=== PATIENT | male | born 2000 | race Caucasian/White ===

== ENCOUNTER 2025-05-12 04:55 | Emergency (ER) | payer SELFPAY ==
[2025-05-12] MEDS ORDERED: ONDANSETRON 4 MG/2 ML VIAL ONE (05:50)
[2025-05-12] MEDS ORDERED: NA CHLORIDE 0.9% 1,000 ML ONE ×2 (05:50→06:44)
[2025-05-12] MEDS ORDERED: KETOROLAC 30 MG/ML INJ ONE ×2 (05:50→06:44)
[2025-05-12 06:08] LABS: Absolute Lymphocytes (CBC) 2.1 K/uL (0.7-4.9); Hematocrit 45.5 % (39.6-49.0); Hemoglobin 15.6 g/dL (13.6-17.9); MCH 28.2 pg (27.0-35.0); MCHC 34.4 g/dL (32.0-36.0); MCV 82.1 fL (80-100); MPV 10.2 fL (7.6-11.3); Nucleated RBC Absolute Count 0.0 (0-0); Nucleated Red Blood Cells % 0.2 % (0-0); RBC Red Blood Cell Count 5.54 M/uL (4.33-5.43); White Blood Count 8.70 thou/uL (4.3-10.9)
[2025-05-12 06:11] LABS: Sqamous Epithelial <5 /HPF (None Seen); Urine Culture Reflex Order NOT NEEDED; Urine Microscopic Reflex YN ORDER UMIC
[2025-05-12 06:25] LABS: ALT/SGPT 45.0 U/L (16-61); AST/SGOT 19.0 U/L (15-37); Albumin 3.9 g/dL (3.4-5.0); Albumin/Globulin Ratio 1.0 (1.1-1.8); Alkaline Phosphatase 105.0 U/L (45-117); Anion Gap 9.7 mEq/L (5.0-15.0); BUN Blood Urea Nitrogen 10.0 mg/dL (7-18); Globulin 3.8 g/dL (2.3-3.5); Glucose Level 98.0 mg/dL (74-106); Lipase 36.0 U/L (13-75); Potassium 3.7 mEq/L (3.5-5.1)
[2025-05-12] MEDS ORDERED: TAMSULOSIN 0.4 MG SR CAP ONE (06:44)
[2025-05-12] MEDS ORDERED: CEFTRIAXONE 1000 MG/VIAL ONE (06:44)
[2025-05-12] MEDS ORDERED: MAGNESIUM SULFATE 1 gm IVPB 1 GM/100 ML BAG IV ONE (06:45)
--- NOTE | 2025-05-12 06:58 | ER ---
Nurse's Notes [facility] Name: Kamari Pinon Age: 24 yrs Sex: Male : 2000 Arrival Date: 05/12/2025 Time: 04:55 Bed 7 Private MD: Diagnosis: Hydronephrosis with renal and ureteral calculous obstruction Presentation: 05/12 05:22 Chief complaint: Patient states: NAUSEA AND VOMITING. RIGHT FLANK PAIN THAT RADIATES TO ha1 THE GROIN AREA. 05:22 Coronavirus screen: Client denies travel out of the [place] in the last 14 days. Ebola ha1 Screen: No symptoms or risks identified at this time. Initial Sepsis Screen: Does the patient meet any 2 criteria? No. Patient's initial sepsis screen is negative. Does the patient have a suspected source of infection? No. Patient's initial sepsis screen is negative. Risk Assessment: Do you want to hurt yourself or someone else? Patient reports no desire to harm self or others. Onset of symptoms was May 12, 2025. 05:22 Method Of Arrival: Ambulatory ha1 05:22 Acuity: ERIKA 3 ha1 Triage Assessment: 05:22 General: Appears comfortable, Behavior is calm, cooperative. Pain: Complains of pain in ha1 back Pain radiates to groin Pain currently is 5 out of 10 on a pain scale. Quality of pain is described as aching. Neuro: Level of Consciousness is awake, alert, obeys commands, Oriented to person, place, time, situation. Cardiovascular: Capillary refill < 3 seconds Patient's skin is warm and dry. Respiratory: Airway is patent Respiratory effort is even, unlabored, Respiratory pattern is regular, symmetrical. GI: Abdomen is round non-distended, Reports nausea, vomiting. Musculoskeletal: Circulation, motion, and sensation intact. Range of motion: intact in all extremities. Historical: - Allergies: 05:43 No Known Allergies; ha1 - PMHx: 05:43 None; ha1 - Immunization history:: Adult Immunizations up to date. - Infectious Disease History:: Denies. - Social history:: Smoking status: Reported history of juuling and/or vaping. Screenin:47 [facility] ED Fall Risk Assessment (Adult) History of falling in the last 3 months, ha1 including since admission No falls in past 3 months (0 pts) Confusion or Disorientation No (0 pts) Intoxicated or Sedated No (0 pts) Impaired Gait No (0 pts) Mobility Assist Device Used No (0 pt) Altered Elimination No (0 pt) Score/Fall Risk Level 0 - 2 = Low Risk Oriented to surroundings, Maintained a safe environment, Educated pt \T\ family on fall prevention, incl call for assistance when getting out of bed, Hourly rounding (assess needs \T\ fall precautionary measures) done. Abuse screen: Denies threats or abuse. Denies injuries from another. Nutritional screening: No deficits noted. Tuberculosis screening: No symptoms or risk factors identified. Assessment: 05:22 Reassessment: SEE TRIAGE ASSESSMENT. ha1 06:57 Reassessment: Patient and/or family updated on plan of care and expected duration. Pain ha1 level reassessed. Patient is alert, oriented x 3, equal unlabored respirations, skin warm/dry/pink. PAIN 2/10 Patient states feeling better. Patient states symptoms have improved. 07:25 General: Appears in no apparent distress. comfortable, Behavior is calm, cooperative. zm Pain: Complains of pain in back Pain currently is 2 out of 10 on a pain scale. Neuro: Level of Consciousness is awake, alert, obeys commands, Oriented to person, place, time, situation. Cardiovascular: Heart tones S1 S2 present Capillary refill < 3 seconds in bilateral fingers Patient's skin is warm and dry. Respiratory: Airway is patent Respiratory effort is even, unlabored, Respiratory pattern is regular, symmetrical, Breath sounds are clear bilaterally. GI: Abdomen is round non-distended, Bowel sounds present X 4 quads. Abd is soft and non tender X 4 quads. : Denies burning with urination, inability to void. EENT: No signs and/or symptoms were reported regarding the EENT system. Derm: No signs and/or symptoms reported regarding the dermatologic system. Skin is intact, is healthy with good turgor, Skin is pink, warm \T\ dry. Musculoskeletal: No signs and/or symptoms reported regarding the musculoskeletal system. Circulation, motion, and sensation intact. Range of motion: intact in all extremities. Vital Signs: 05:22 BP 130 / 93; Pulse 99; Resp 20 S; Temp 97.8(O); Pulse Ox 100% on R/A; Weight 120.2 kg; ha1 Height 5 ft. 7 in. ; Pain 5/10; 06:55 BP 141 / 92; Pulse 85; Resp 18 S; Pulse Ox 98% on R/A; ha1 07:48 BP 129 / 88; Pulse 69; Resp 17; Temp 98.3; Pulse Ox 99% on R/A; Pain 2/10; zm 08:27 BP 137 / 62; Pulse 65; Resp 15; Pulse Ox 100% ; bp 05:22 Body Mass Index 41.50 (120.20 kg, 170.18 cm) ha1 05:22 Pain Scale: Adult ha1 07:48 Pain Scale: Adult zm [place] Coma Score: 07:48 Eye Response: spontaneous(4). Motor Response: obeys commands(6). Verbal Response: zm oriented(5). Total: 15. ED Course: 04:59 Patient arrived in ED. gm2 05:00 Mdahu Tillman PA-C is PHCP. cp 05:00 Madhu Thomas MD is Attending Physician. cp 05:22 Patient has correct armband on for positive identification. Bed in low position. Call ha1 light in reach. Side rails up X 1. Adult w/ patient. 05:22 Client placed on continuous cardiac and pulse oximetry monitoring. NIBP monitoring ha1 applied. Door closed. Noise minimized. Pillow given. 05:43 Triage completed. ha1 05:47 Inserted saline lock: 20 gauge in left antecubital area, using aseptic technique. Blood ha1 collected. Flushed with 10 mL NS. 05:55 IV discontinued, intact, bleeding controlled, No redness/swelling at site. Pressure ha1 dressing applied. 05:55 Inserted saline lock: 22 gauge in right upper arm, using aseptic technique. Flushed ha1 with 10 mL NS. 06:10 CT Stone Protocol In Process Unspecified. EDMS 06:38 Amy Romo, MARIEL is Primary Nurse. ha1 06:58 Milton Harris MD is Referral Physician. otf 07:20 US Scrotum Testicles In Process Unspecified. EDMS 07:20 Abdomen Pelvis Scan\E\US In Process Unspecified. EDMS 08:27 No provider procedures requiring assistance completed. IV discontinued, intact, bp bleeding controlled, No redness/swelling at site. Pressure dressing applied. Administered Medications: 06:00 Drug: Ondansetron IVP 4 mg IVP once; over 2 minutes Route: IVP; Site: right upper arm; ha1 07:36 Follow up: Response: No adverse reaction zm 06:02 Drug: Ketorolac IVP 15 mg IVP once Route: IVP; Site: right upper arm; ha1 07:36 Follow up: Response: No adverse reaction zm 06:06 Drug: NS 0.9% IV 1000 ml IV at 1000 ml once; to be given as a bolus over 60 minutes ha1 Route: IV; Rate: 1000 ml; Site: right upper arm; 07:36 Follow up: Response: No adverse reaction; IV Status: Completed infusion; IV Intake: zm 1000ml 06:55 Drug: Ketorolac IVP 15 mg IVP once Route: IVP; Site: right upper arm; ha1 07:38 Follow up: Response: No adverse reaction zm 06:57 Drug: Rocephin IV 1 grams IV at per protocol once; Given slow IV push per pharmacy ha1 instructions Route: IV; Rate: per protocol; Site: right upper arm; 07:39 Follow up: Response: No adverse reaction; IV Status: Completed infusion zm 06:59 Drug: Magnesium Sulfate IVPB 1 grams IVPB once over 1 hrs Route: IVPB; Infused Over: 1 ha1 hrs; Site: right upper arm; 07:37 Follow up: Response: No adverse reaction; IV Status: Completed infusion; IV Intake: 50mlzm 06:59 Drug: NS 0.9% IV 1000 ml IV at 1000 ml once; to be given as a bolus over 60 minutes ha1 Route: IV; Rate: 1000 ml; Site: right upper arm; 08:27 Follow up: IV Status: Completed infusion bp 07:00 Drug: Flomax PO 0.4 mg PO once Route: PO; ha1 07:37 Follow up: Response: No adverse reaction zm 08:26 Not Given (Other Intervention Used): hydromorphone1 mg IVP once bp Medication: 05:47 VIS not applicable for this client. ha1 Intake: 07:36 IV: 1000ml; Total: 1000ml. zm 07:37 IV: 50ml; Total: 1050ml. zm Outcome: 06:58 Discharge ordered by . otf 08:27 Discharged to home ambulatory, with family, bp 08:27 Condition: stable 08:27 Discharge instructions given to patient, Instructed on discharge instructions, follow up and referral plans. medication usage, Demonstrated understanding of instructions, follow-up care, medications, Prescriptions given X 5 08:28 Patient left the ED. bp Signatures: Dispatcher [employer] EDMadhu Baez MD MD cha Page, Corey, PA-C PA-Ganesh Douglas cp, RN RN Eunice Callejas RN RN zm Ayala, Heidy, RN RN Amaya Palma 2 Corrections: (The following items were deleted from the chart) 07:48 07:42 General: Appears in no apparent distress. comfortable, zm zm
--- NOTE | 2025-05-12 06:59 | EDPHYS ---
Physician Documentation [facility] Name: Kamari Pinon Age: 24 yrs Sex: Male : 2000 Arrival Date: 05/12/2025 Time: 04:55 Bed 7 Private MD: ED Physician Madhu Thomas HPI: 05/12 05:15 This 24 yrs old Male presents to ER via Ambulatory with complaints of Possible Kidney cp Stone, Low Back Pain, Nausea/Vomiting, Abdominal Pain. 05:15 The patient presents with flank pain, of the right flank, scrotal pain, of the right cp side. Onset: The symptoms/episode began/occurred this morning. Associated signs and symptoms: Pertinent positives: abdominal pain, nausea, Pertinent negatives: chest pain, constipation, fever, incontinence, numbness, active vomiting. Severity of symptoms: in the emergency department the symptoms are unchanged, despite home interventions, pain described as achy. Historical: - Allergies: 05:43 No Known Allergies; ha1 - PMHx: 05:43 None; ha1 - Immunization history:: Adult Immunizations up to date. - Infectious Disease History:: Denies. - Social history:: Smoking status: Reported history of juuling and/or vaping. ROS: 05:20 Constitutional: Negative for body aches, chills, fever, poor PO intake, cp 05:20 Eyes: Negative for injury, pain, redness, and discharge, cp 05:20 ENT: Negative for drainage from ear(s), ear pain, sore throat, difficulty swallowing, difficulty handling secretions, 05:20 Cardiovascular: Negative for chest pain, edema, palpitations, 05:20 Respiratory: Negative for cough, shortness of breath, wheezing, 05:20 Abdomen/GI: Positive for abdominal pain, nausea, of the anterior aspect of right lateral abdomen and posterior aspect of right lateral abdomen, Negative for diarrhea, constipation, 05:20 : Positive for testicular pain 05:20 Neuro: Negative for altered mental status, dizziness, headache, numbness, 05:20 All other systems are negative, Exam: 05:25 Constitutional: The patient appears in no acute distress, alert, awake, non-toxic, well cp developed, well nourished, overweight 05:25 Head/Face: Normocephalic, atraumatic. cp 05:25 Eyes: Periorbital structures: appear normal, Conjunctiva: normal, Sclera: no appreciated abnormality, Lids and lashes: appear normal, bilaterally, 05:25 ENT: External ear(s): are unremarkable, Nose: is normal, Mouth: Lips: moist, Oral mucosa: moist, Posterior pharynx: Airway: no evidence of obstruction, patent, 05:25 Neck: ROM/movement: is normal, is supple, without pain, no range of motions limitations, 05:25 Chest/axilla: Inspection: normal, 05:25 Cardiovascular: Rate: normal, Rhythm: regular, Edema: is not appreciated, JVD: is not appreciated, 05:25 Respiratory: the patient does not display signs of respiratory distress, Respirations: normal, no use of accessory muscles, no retractions, labored breathing, is not present, Breath sounds: are clear throughout, no decreased breath sounds, no stridor, no wheezing, 05:25 Abdomen/GI: Inspection: obese Bowel sounds: active, all quadrants, Palpation: soft, in all quadrants, moderate abdominal tenderness, in the anterior aspect of right lateral abdomen and posterior aspect of right lateral abdomen, rebound tenderness, is not appreciated, 05:25 Back: pain, that is moderate, of the right mid back, 05:25 Neuro: Orientation: to person, place \T\ time. Mentation: is normal, Motor: moves all fours, strength is normal, Sensation: is normal, Vital Signs: 05:22 BP 130 / 93; Pulse 99; Resp 20 S; Temp 97.8(O); Pulse Ox 100% on R/A; Weight 120.2 kg; ha1 Height 5 ft. 7 in. ; Pain 5/10; 06:55 BP 141 / 92; Pulse 85; Resp 18 S; Pulse Ox 98% on R/A; ha1 07:48 BP 129 / 88; Pulse 69; Resp 17; Temp 98.3; Pulse Ox 99% on R/A; Pain 2/10; zm 08:27 BP 137 / 62; Pulse 65; Resp 15; Pulse Ox 100% ; bp 05:22 Body Mass Index 41.50 (120.20 kg, 170.18 cm) ha 05:22 Pain Scale: Adult ha1 07:48 Pain Scale: Adult zm [place] Coma Score: 07:48 Eye Response: spontaneous(4). Motor Response: obeys commands(6). Verbal Response: zm oriented(5). Total: 15. MDM: 05:33 Medical Screening Exam initiated cp 06:10 Differential diagnosis: appendicitis, UTI, Pyelonephritis Ureterolithiasis. cp 06:29 Differential diagnosis: sciatica, UTI. Data reviewed: vital signs, nurses notes, lab otf test result(s), radiologic studies, CT scan. Consideration of Admission/Observation Escalation of care including admission/observation considered. I considered the following discharge prescriptions or medication management in the emergency department Medications were administered in the Emergency Department. See MAR. Independent interpretation of the following test(s) in the Emergency Department CT Scan: My interpretation is ct stone. Test considered but Not performed: Ultrasound no renal usg. Historians other than the Patient: Spouse/Significant Other: spouse well informed. Care significantly affected by the following chronic conditions: Obesity. 05/12 05:09 Order name: CBC with Diff; Complete Time: 06:17 cp 05/12 05:09 Order name: CMP; Complete Time: 06:25 cp 05/12 05:09 Order name: Lipase; Complete Time: 06:25 cp 05/12 05:09 Order name: UA Rfx Kirill Cult if indicated; Complete Time: 06:17 cp 05/12 05:40 Order name: US Scrotum Testicles cp 05/12 05:51 Order name: CT Stone Protocol 05/12 07:20 Order name: Abdomen Pelvis Scan\E\US EDMS 05/12 05:09 Order name: IV Saline Lock; Complete Time: 05:55 cp 05/12 05:09 Order name: Labs collected and sent; Complete Time: 06:06 cp Administered Medications: 06:00 Drug: Ondansetron IVP 4 mg IVP once; over 2 minutes Route: IVP; Site: right upper arm; ha1 07:36 Follow up: Response: No adverse reaction zm 06:02 Drug: Ketorolac IVP 15 mg IVP once Route: IVP; Site: right upper arm; ha1 07:36 Follow up: Response: No adverse reaction zm 06:06 Drug: NS 0.9% IV 1000 ml IV at 1000 ml once; to be given as a bolus over 60 minutes ha1 Route: IV; Rate: 1000 ml; Site: right upper arm; 07:36 Follow up: Response: No adverse reaction; IV Status: Completed infusion; IV Intake: zm 1000ml 06:55 Drug: Ketorolac IVP 15 mg IVP once Route: IVP; Site: right upper arm; ha1 07:38 Follow up: Response: No adverse reaction zm 06:57 Drug: Rocephin IV 1 grams IV at per protocol once; Given slow IV push per pharmacy ha1 instructions Route: IV; Rate: per protocol; Site: right upper arm; 07:39 Follow up: Response: No adverse reaction; IV Status: Completed infusion zm 06:59 Drug: Magnesium Sulfate IVPB 1 grams IVPB once over 1 hrs Route: IVPB; Infused Over: 1 ha1 hrs; Site: right upper arm; 07:37 Follow up: Response: No adverse reaction; IV Status: Completed infusion; IV Intake: 50mlzm 06:59 Drug: NS 0.9% IV 1000 ml IV at 1000 ml once; to be given as a bolus over 60 minutes ha1 Route: IV; Rate: 1000 ml; Site: right upper arm; 08:27 Follow up: IV Status: Completed infusion bp 07:00 Drug: Flomax PO 0.4 mg PO once Route: PO; ha1 07:37 Follow up: Response: No adverse reaction zm 08:26 Not Given (Other Intervention Used): hydromorphone1 mg IVP once bp Disposition: 06:29 Co-signature as Attending Physician, Madhu Thomas MD I agree with the assessment and otf plan of care. Disposition Summary: 05/12/25 06:58 Discharge Ordered Notes: Location: Home otf Problem: new otf Symptoms: have improved otf Condition: Stable otf Diagnosis - Hydronephrosis with renal and ureteral calculous obstruction otf Followup: otf - With: Private Physician - When: 2 - 3 days - Reason: Recheck today's complaints, Continuance of care, Re-evaluation by your physician Followup: otf - With: Milton Harris MD - When: 2 - 3 days - Reason: Recheck today's complaints, Continuance of care, Re-evaluation by your physician Discharge Instructions: - Discharge Summary Sheet otf - Kidney Stones otf - Kidney Stones, [id number] otf - Hydronephrosis otf - Dietary Guidelines to Help Prevent Kidney Stones otf Forms: - Medication Reconciliation Form otf - Antibiotic Education otf - Prescription Opioid Use otf - Patient Portal Instructions otf - Leadership Thank You Letter otf Prescriptions: - Flomax 0.4 mg Oral capsule - take 1 capsule ORAL route daily; 30 capsule; Refills: 0, Product Selection [facility] Permitted - ketorolac 10 mg Oral tablet - take 1 tablet ORAL route every 6 hours; 16 tablet; Refills: 0, Product otf Selection Permitted - ondansetron HCl 4 mg Oral tablet - take 1 tablet ORAL route every 6 to 8 hours as needed for nausea and vomiting; otf 20 tablet; Refills: 0, Product Selection Permitted - Cipro 500 mg Oral Tablet - take 1 tablet ORAL route every 12 hours for 7 days; 14 tablet; Refills: 0, [facility] Product Selection Permitted - Tylenol-Codeine #3 300mg-30mg Oral tablet - take 2 tablets ORAL route every 6 hours As needed; 20 tablet; Refills: 0, [facility] Product Selection Permitted Signatures: Dispatcher [employer] EDMS Madhu Thomas MD MD cha Page, Corey, PA-C PA-C Eunice Knight RN MARIEL Amy Romo RN RN ha Ganesh Crockett RN bp Corrections: (The following items were deleted from the chart) 05:10 05:10 CBC+H.LAB.BRZ ordered. EDMS EDMS 05:10 05:10 COMPREHENSIVE METABOLIC PANEL+C.LAB.BRZ ordered. EDMS EDMS 05:10 05:10 LIPASE+C.LAB.BRZ ordered. EDMS EDMS 05:10 05:10 UA Rfx Kirill Cult if indicated+U.LAB.BRZ ordered. EDMS EDMS 05:40 05:40 Scrotum Testicles+US.RAD.BRZ ordered. EDMS EDMS 18:46 05:15 Severity of symptoms: in the emergency department the symptoms are unchanged, cp despite home interventions, cp
--- NOTE | 2025-05-12 07:42 | RAD REPORT ---
EXAMINATION: CT ABDOMEN AND PELVIS WITHOUT CONTRAST CLINICAL INDICATION: FLANK PAIN TECHNIQUE: CT abdomen and pelvis was performed, without IV contrast, as per department protocol. Axia l, sagittal and coronal reconstructions were obtained. One or more of the following dose reduction techniques were used: Automated exposure control, adjustment of the mA and kV according to the patien t size, and iterative reconstruction. Unless otherwise specified, incidental findings do not require dedicated imaging follow-up. COMPARISON: No prior exam. FINDINGS: The lack of intravenous contrast limits the sensitivity of this exam for evaluation of solid visceral organs, vascular structures, and retroperitoneum. LOWER CHEST: The visualized lung bases are clear. LIVER:Normal in size and contour. No focal lesion. Grossly unremarkable gallbladder. SPLEEN: Normal size. No focal lesion. PANCREAS: No mass, ductal dilation, or spencer-pancreatic fluid. ADRENALS: Normal; no mass. KIDNEYS AND URETERS: There is a 5-6 mm stone proximal right ureter at the right UPJ. Mild right hydro nephrosis. No left-sided stone or hydronephrosis seen. URINARY BLADDER: Normal contour. GASTROINTESTINAL TRACT: No evidence of bowel obstruction, significant free fluid, free air or abscess . There is mild diverticulosis coli of the sigmoid colon without diverticulitis. APPENDIX: Normal appendix. LYMPH NODES: No lymphadenopathy. 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 IMPRESSION: 5-6 mm calculus proximal right ureter at the level of the right UPJ resulting in mild right hydroneph rosis.
--- NOTE | 2025-05-12 08:08 | RAD REPORT ---
EXAMINATION: ULTRASOUND DUPLEX OF SCROTUM AND TESTICLES CLINICAL INDICATION: Male, 24 years, testicular pain TECHNIQUE: Duplex scan of the scrotal contents was performed including real-time color and spectral D oppler ultrasonography with arterial inflow and venous outflow. COMPARISON: No prior exam. FINDINGS: RIGHT TESTICLE AND EPIDIDYMIS: The right testicle is normal in size, measuring 4.5 x 3.4 x 2.3 cm. Normal, homogeneous echotexture with no focal lesion seen. The right epididymis is normal. Color Doppler flow in the right testicle is normal. LEFT TESTICLE AND EPIDIDYMIS: The left testicle is normal in size, measuring 4.4 x 3.2 x 2.3 cm. Normal, homogeneous echotexture with no focal lesion seen. The left epididymis is normal. Color Doppler flow in the left testicle is normal. ADDITIONAL FINDINGS: None. IMPRESSION: No acute or significant abnormalities.
[2025-05-12 16:04] VITALS: TEMP 98.3
[2025-05-13] MEDS ORDERED: ONDANSETRON 4 MG/2 ML VIAL IV PRN (02:55)
--- NOTE | 2025-05-13 03:16 | P.HP ---
Certification for Inpatient Patient admitted to: Observation With expected LOS: <2 Midnights Patient will require the following post-hospital care: None Practitioner: I am a practitioner with admitting privileges, knowledge of patient current condition, hospital course, and medical plan of care. Services: Services provided to patient in accordance with Admission requirements found in Title 42 Section 412.3 of the Code of Federal Regulations Patient History Date of Service: 05/13/25 Reason for admission: Renal Calculus History of Present Illness: Patient is a pleasant 24-year-old male with no past medical history, who presents to ER complaining of severe and worsening pain right flank area, and radiates to his scrotum occasionally. Patient states on Sunday of last week, initially he started having scrotum pain, and states on Sunday of this week, started having right flank pain. Patient states his right flank pain progressively worsened today, states the pain was unbearable, and consisted, describes the pain as sharp, aching and constant, with no associated chest pain or shortness of breath. States intermittently, the pain also radiates to scrotum, states not intense like the right flank pain. States he decided to report to the ER tonight due to the severity of his right flank pain. Denies of any fever or chills. Patient has extensive family history of kidney stones, both parents have history, and the sister as well. Course in ER (1)Ultrasound scrotum. Impression: No acute or significant abnormalities. (2)Ultrasound abdomen. Impression no acute or significant abnormalities. (3) CT abdomen. Impression: 5-6 mm calculus proximal right ureter at the level of the right UPJ resulting in mild right hydronephrosis. - Past Medical/Surgical History -: Patient states he does not have any past medical history. -: States no past surgical history. - Family History Father -: Other (see notes) (Kidney stones) Mother -: Other (see notes) (Kidney stones.) Sister -: Other (see notes) (Kidney stones.) - Social History Smoking Status: Never smoker Alcohol use: No CD- Drugs: No Caffeine use: No Place of Residence: Home Review of Systems 10-point ROS is otherwise unremarkable General: Other (Scrotum, right flank pain) Genitourinary: Other (Right flank pain secondary to kidney stone.) Physical Examination - Vital Signs Temperature: 98.3 F Blood Pressure: 137/62 Pulse: 65 Respirations: 15 - Physical Exam General: Alert, In no apparent distress, Oriented x3, Cooperative HEENT: Atraumatic, Normocephalic, PERRLA, Mucous membr. moist/pink Neck: Supple, 2+ carotid pulse no bruit, JVD not distended, No Thyromegaly, No LAD, Without JVD or thyroid abnormality Respiratory: Clear to auscultation bilaterally, Normal air movement Cardiovascular: No edema, Normal pulses, Regular rate/rhythm, Normal S1 S2, No gallops, No rubs, No murmurs Capillary refill: <2 Seconds Gastrointestinal: Normal bowel sounds, Soft and benign, Non-distended, W/out hepatomegaly, No ascites, No masses, No rebound, No guarding, Tenderness (Tenderness right flank pain secondary to kidney stone.) Musculoskeletal: No clubbing, No swelling, No contractures, No erythema, No tenderness, No warmth Integumentary: No rashes, No breakdown, No significant lesion, No tenderness/swelling, No erythema, No warmth, No cyanosis Neurological: Normal gait, Normal speech, Normal strength at 5/5 x4 extr, Normal tone, Sensation intact, Cranial nerves 3-12 intact, Normal reflexes 2+, Normal affect Lymphatics: No axilla or inguinal lymphadenopathy - Studies Laboratory Data (last 24 hrs) 05/12/25 05/12/25 06:00 06:00 WBC 8.70 Hgb 15.6 Hct 45.5 Plt Count 225 Sodium 138 Potassium 3.7 BUN 10 Creatinine 1.12 Glucose 98 Total Bilirubin 0.7 AST 19 ALT 45 Alkaline Phosphatase 105 Lipase 36 Male Exam - Male Exam Inguinal exam: No hernias Assessment and Plan - Plan Patient is a pleasant 24-year-old male who reports to ER complaining of severe right flank pain, radiating intermittently to his scrotum. Patient admitted to observation with diagnosis of renal calculus. (1)Renal calculus. -Consult Dr. Norman Rose urology. -IV NS at 125 mL/ hr. -Toradol 30 mg IV as needed every 6 hours. Patient received Toradol in ER, states it works better with his pain. -Zofran 4 mg IV as needed every 6 hours. (2)Explained entire treatment plan to the patient, solicited questions answered and voiced understanding. Discharge Plan: Home Plan to discharge in: 72 Hours - Advance Directives Does patient have a Living Will: No Does patient have a Durable POA for Healthcare: No - Code Status/Comfort Care Code Status Assessed: Yes Code Status: Full Code Critical Care: No Time Spent Managing Pts Care (In Minutes): 55
[2025-05-13 04:17] VITALS: BMI 41.5
[2025-05-13 04:23] VITALS: O2SAT 97
[2025-05-13] MEDS: KETOROLAC 30 MG/ML INJ IV PRN (04:24)
[2025-05-13] MEDS: NA CHLORIDE 0.9% 1,000 ML IV SCH (06:55)
[2025-05-13 14:27] VITALS: BP 143/99
== END 2025-05-12 08:28 | disposition home or self-care (01) ==
LOC: ER 04:55 → UNDOADMOB 05-13 02:51 → ERHOLD 05-13 02:51
DX: N13.2 Hydronephrosis with renal and ureteral calculous obstruction (principal)
CPT/HCPCS: 36415; 74176; 76377; 76870; 80053; 81001; 83690; 85025; 93975; 96361; 96365; 96375; 99284; J0696; J1885; J2405; J3475; J7030

== ENCOUNTER 2025-05-13 00:01 | Inpatient (IN) | payer SELFPAY ==
[2025-05-13] MEDS ORDERED: ONDANSETRON 4 MG/2 ML VIAL ONE (00:23)
[2025-05-13] MEDS ORDERED: HYDROMORPHONE HCL 0.5 MG/0.5 ML INJ ONE ×2 (00:23→00:52)
[2025-05-13] MEDS ORDERED: KETOROLAC 30 MG/ML INJ ONE ×4 (00:23→11:12)
[2025-05-13] MEDS ORDERED: NA CHLORIDE 0.9% 1,000 ML ONE ×3 (00:24→06:55)
[2025-05-13] MEDS ORDERED: Magnesium Sulfate 2gm IVPB 2 G/50 ML BAG IV ONE (00:24)
[2025-05-13] MEDS ORDERED: TAMSULOSIN 0.4 MG SR CAP ONE (00:24)
[2025-05-13 00:31] LABS: Absolute Lymphocytes (CBC) 3.2 K/uL (0.7-4.9); Hematocrit 45.1 % (39.6-49.0); Hemoglobin 15.1 g/dL (13.6-17.9); MCH 27.8 pg (27.0-35.0); MCHC 33.6 g/dL (32.0-36.0); MCV 82.8 fL (80-100); MPV 9.8 fL (7.6-11.3); Nucleated RBC Absolute Count 0.0 (0-0); Nucleated Red Blood Cells % 0.1 % (0-0); RBC Red Blood Cell Count 5.44 M/uL (4.33-5.43); White Blood Count 9.60 thou/uL (4.3-10.9)
[2025-05-13 00:33] LABS: Sqamous Epithelial None Seen /HPF (None Seen); Urine Culture Reflex Order NOT NEEDED; Urine Microscopic Reflex YN ORDER UMIC
[2025-05-13 00:41] LABS: Anion Gap 7.0 mEq/L (5.0-15.0); BUN Blood Urea Nitrogen 14.0 mg/dL (7-18); Glucose Level 103.0 mg/dL (74-106); Potassium 4.0 mEq/L (3.5-5.1)
--- NOTE | 2025-05-13 02:08 | ER ---
Nurse's Notes [facility] Name: Kamari Pinon Age: 24 yrs Sex: Male : 2000 Arrival Date: 05/13/2025 Time: 00:01 Bed 18 Private MD: Diagnosis: Calculus of kidney with calculus of ureter-5.5 mm right UPJ with hydronephrosis, intractable pain Presentation: 05/13 00:13 Chief complaint: Patient states: c/o R side flank pain, more radiating down toward R al5 side groin. pain started this weekend. acute pain started at 2300 this evening. Coronavirus screen: At this time, the client does not indicate any symptoms associated with coronavirus-19. Ebola Screen: No symptoms or risks identified at this time. Initial Sepsis Screen: Does the patient meet any 2 criteria? No. Patient's initial sepsis screen is negative. Does the patient have a suspected source of infection? No. Patient's initial sepsis screen is negative. Risk Assessment: Do you want to hurt yourself or someone else? Patient reports no desire to harm self or others. Onset of symptoms was May 08, 2025. 00:13 Method Of Arrival: Ambulatory al5 00:13 Acuity: ERIKA 3 al5 00:13 Note attempted to take his prescribed medications for the kidney stones/pain, but al5 vomited pills 15 minutes later. Triage Assessment: 00:13 General: Appears in no apparent distress. uncomfortable, Behavior is calm, cooperative. al5 Pain: Complains of pain in right mid back and right low back Pain radiates to right femoral area Pain currently is 9 out of 10 on a pain scale. EENT: No signs and/or symptoms were reported regarding the EENT system. Neuro: Level of Consciousness is awake, alert, obeys commands, Oriented to person, place, time, situation. Cardiovascular: Patient's skin is warm and dry. Respiratory: Airway is patent Respiratory effort is even, unlabored, Respiratory pattern is regular, symmetrical. GI: Abdomen is non-distended. : Urine is cloudy, dark stanley color Reports pain in right flank(s), in lower back Pain is 9 out of 10 on a pain scale. R side groin. Derm: Skin is intact, is healthy with good turgor, Skin is pink, warm \T\ dry. normal. Musculoskeletal: Circulation, motion, and sensation intact. Range of motion: intact in all extremities. Historical: - Allergies: 00:15 No Known Allergies; al5 - PMHx: 00:15 None; al5 - PSHx: 00:15 None; al5 - Immunization history:: Adult Immunizations up to date. - Infectious Disease History:: Denies. - Social history:: Smoking status: Patient/guardian denies using tobacco, Stopped _ months ago 0.5. Screenin:00 [facility] ED Fall Risk Assessment (Adult) History of falling in the last 3 months, bp including since admission No falls in past 3 months (0 pts) Confusion or Disorientation No (0 pts) Intoxicated or Sedated No (0 pts) Impaired Gait No (0 pts) Mobility Assist Device Used No (0 pt) Altered Elimination No (0 pt) Score/Fall Risk Level 0 - 2 = Low Risk Oriented to surroundings. Abuse screen: Denies threats or abuse. Denies injuries from another. Nutritional screening: No deficits noted. Tuberculosis screening: No symptoms or risk factors identified. Assessment: 00:17 Reassessment: see triage assessment. al5 07:00 GI: Bowel sounds present X 4 quads. Abd is soft X 4 quads. bp Vital Signs: 00:13 BP 155 / 97; Pulse 74; Resp 18; Temp 98.4(O); Pulse Ox 99% on R/A; Weight 120.2 kg; al5 Height 5 ft. 7 in. ; Pain 9/10; 00:13 Body Mass Index 41.50 (120.20 kg, 170.18 cm) al5 00:13 Pain Scale: Adult al5 ED Course: 00:03 Patient arrived in ED. mr 00:04 Nilda Alvarenga PA-C is PHCP. sb4 00:04 Pro Doyle DO is Attending Physician. sb4 00:13 Arm band placed on right wrist. Patient placed in the treatment room, in view of staff al5 members, on pulse oximetry. 00:14 Triage completed. al5 00:26 Inserted saline lock: 22 gauge in left antecubital area, using aseptic technique. Blood jb4 collected. started by MARIEL Cornejo. 00:33 Chantal Doyle RN is Primary Nurse. at6 01:13 CT Stone Protocol In Process Unspecified. EDMS 02:07 Quincy Russell, RN is Hospitalizing Provider. sb4 07:00 Patient has correct armband on for positive identification. bp 07:00 No provider procedures requiring assistance completed. Patient admitted, IV remains in bp place. 07:04 Primary Nurse role handed off by Chantal Doyle, MARIEL bp 07:04 Ganesh Crockett, RN is Primary Nurse. bp Administered Medications: 00:33 Drug: HYDROmorphone IVP 0.5 mg IVP once Route: IVP; Site: left antecubital; at6 02:58 Follow up: Response: Pain is decreased at6 00:33 Drug: NS 0.9% IV 1000 ml IV at 1 bolus Per protocol; to be given as a bolus over 60 at6 minutes Route: IV; Rate: 1 bolus; Site: left antecubital; 02:58 Follow up: Response: No adverse reaction; IV Status: Completed infusion at6 00:33 Drug: Magnesium Sulfate IVPB 2 grams IVPB once over 30 mins Route: IVPB; Infused Over: at6 30 mins; Site: left antecubital; 14:48 Follow up: IV Status: Completed infusion bp 00:33 Drug: Ondansetron IVP 4 mg IVP once; over 2 minutes Route: IVP; Site: left antecubital; at6 02:57 Follow up: Response: Nausea is decreased at6 00:33 Drug: Flomax PO 0.4 mg PO once Route: PO; at6 14:48 Follow up: Response: No adverse reaction bp 00:34 Drug: Ketorolac IVP 15 mg IVP once Route: IVP; Site: left antecubital; at6 02:58 Follow up: Response: No adverse reaction at6 00:56 Drug: HYDROmorphone IVP 0.5 mg IVP once Route: IVP; Site: left antecubital; jb4 02:56 Follow up: Response: Pain is decreased at6 02:03 Drug: Ketorolac IVP 15 mg IVP once Route: IVP; Site: left antecubital; at6 02:56 Follow up: Response: Pain is unchanged, physician notified at6 02:15 Drug: HYDROmorphone IVP 1 mg IVP once Route: IVP; Site: left antecubital; at6 02:56 Follow up: Response: Pain is decreased at6 02:15 Drug: NS 0.9% IV 1000 ml IV at 1 bolus Per protocol; to be given as a bolus over 60 at6 minutes Route: IV; Rate: 1 bolus; Site: left antecubital; 02:56 Follow up: Response: No adverse reaction; IV Status: Completed infusion at6 Medication: 14:49 VIS not applicable for this client. bp Outcome: 02:08 Decision to Hospitalize by Provider. sb4 14:47 Admitted to ER Hold. Please see [facility] for further documentation. bp 14:47 Condition: stable 14:47 Instructed on the need for admit, 15:28 Patient left the ED. ll1 Signatures: Dispatcher [employer] EDMS Elizabet uGpta, Ben Contreras mr Marshal Maxwell, RN RN jb4 Ganesh Crockett, RN RN Ronni Varela RN RN ll1 Nilda Alvarenga, PA-Sandra PAClaudia sb4 Laura Rose RN RN al5 Chantal Doyle RN RN at6
--- NOTE | 2025-05-13 02:08 | EDPHYS ---
Physician Documentation [facility] Name: Kamari Pinon Age: 24 yrs Sex: Male : 2000 Arrival Date: 05/13/2025 Time: 00:01 Bed 18 Private MD: ED Physician Pro Doyle HPI: 05/13 00:15 This 24 yrs old Male presents to ER via Ambulatory with complaints of Possible Kidney sb4 Stone. 00:15 Patient states that he was seen here last night and diagnosed with a 5 to 6 cm kidney sb4 stone on the right side, pain improved after medications and was discharged with antibiotics, pain medicines, antibiotics, Flomax. He states that his pain returned this evening and he attempted to take the medications but he threw them all up and the pain has been unbearable so he came back. States he is urinating, but feels like it is small amounts and he has more to void. Denies any history of kidney stones prior to this. Historical: - Allergies: 00:15 No Known Allergies; al5 - PMHx: 00:15 None; al5 - PSHx: 00:15 None; al5 - Immunization history:: Adult Immunizations up to date. - Infectious Disease History:: Denies. - Social history:: Smoking status: Patient/guardian denies using tobacco, Stopped _ months ago 0.5. ROS: 00:15 Constitutional: Negative for fever, chills, and weight loss, sb4 00:15 : Positive for flank pain, 00:15 All other systems are negative, 01:37 Abdomen/GI: Positive for nausea and vomiting, sb4 Exam: 00:15 Head/Face: Normocephalic, atraumatic. Eyes: Extra-ocular motions intact. Periorbital sb4 areas with no swelling, redness, or edema. ENT: Mucous membranes moist. Cardiovascular: Regular rate and rhythm with a normal S1 and S2. Respiratory: No increased work of breathing, no retractions or nasal flaring. Abdomen/GI: Soft, non-tender, no distension. Skin: Warm, dry with normal turgor. Normal color with no rashes, no lesions, and no evidence of cellulitis. 00:15 Constitutional: The patient appears alert, awake, in obvious pain, uncomfortable, Vital Signs: 00:13 BP 155 / 97; Pulse 74; Resp 18; Temp 98.4(O); Pulse Ox 99% on R/A; Weight 120.2 kg; al5 Height 5 ft. 7 in. ; Pain 9/10; 00:13 Body Mass Index 41.50 (120.20 kg, 170.18 cm) al5 00:13 Pain Scale: Adult al5 MDM: 00:04 Medical Screening Exam initiated sb4 00:17 Differential diagnosis: Nephrolithiasis, ureterolithiasis, hydronephrosis, ANALILIA, UTI, sb4 pyelonephritis. 01:07 Independent interpretation of the following test(s) in the Emergency Department CT sb4 Scan: My interpretation is CT stone protocol - stone does not appear to have moved from yesterday's scan. 01:37 Data reviewed: vital signs, nurses notes, radiologic studies, CT scan. sb4 02:08 Management of patient was discussed with the following: Outside Salesperson: Dr. Harris, sb4 urology, agrees to consult. Counseling: I had a detailed discussion with the patient and/or guardian regarding the historical points, exam findings, and any diagnostic results supporting the discharge/admit diagnosis, the presence of at least one elevated blood pressure reading (>120/80) during this emergency department visit, lab results, radiology results, the need for further work-up and treatment in the hospital. 05/13 00:13 Order name: UA Rfx Kirill Cult if indicated; Complete Time: 00:33 sb4 05/13 00:13 Order name: CBC with Diff; Complete Time: 00:35 sb4 05/13 00:13 Order name: BMP; Complete Time: 00:47 sb4 05/13 10:49 Order name: Basic Metabolic Panel EDMS 05/13 10:49 Order name: Basic Metabolic Panel EDMS 05/13 10:49 Order name: Basic Metabolic Panel EDMS 05/13 10:49 Order name: Basic Metabolic Panel EDMS 05/13 10:49 Order name: CBC with Automated Diff EDMS 05/13 10:49 Order name: CBC with Automated Diff EDMS 05/13 10:49 Order name: CBC with Automated Diff EDMS 05/13 10:49 Order name: CBC with Automated Diff EDMS 05/13 10:49 Order name: Magnesium EDMS 05/13 10:49 Order name: Magnesium EDMS 05/13 10:49 Order name: Phosphorus EDMS 05/13 10:49 Order name: Phosphorus EDMS 05/13 00:13 Order name: CT Stone Protocol sb4 05/13 10:46 Order name: CONS Physician Consult EDMS 05/13 00:13 Order name: IV Start; Complete Time: 00:34 sb4 Administered Medications: 00:33 Drug: HYDROmorphone IVP 0.5 mg IVP once Route: IVP; Site: left antecubital; at6 02:58 Follow up: Response: Pain is decreased at6 00:33 Drug: NS 0.9% IV 1000 ml IV at 1 bolus Per protocol; to be given as a bolus over 60 at6 minutes Route: IV; Rate: 1 bolus; Site: left antecubital; 02:58 Follow up: Response: No adverse reaction; IV Status: Completed infusion at6 00:33 Drug: Magnesium Sulfate IVPB 2 grams IVPB once over 30 mins Route: IVPB; Infused Over: at6 30 mins; Site: left antecubital; 14:48 Follow up: IV Status: Completed infusion bp 00:33 Drug: Ondansetron IVP 4 mg IVP once; over 2 minutes Route: IVP; Site: left antecubital; at6 02:57 Follow up: Response: Nausea is decreased at6 00:33 Drug: Flomax PO 0.4 mg PO once Route: PO; at6 14:48 Follow up: Response: No adverse reaction bp 00:34 Drug: Ketorolac IVP 15 mg IVP once Route: IVP; Site: left antecubital; at6 02:58 Follow up: Response: No adverse reaction at6 00:56 Drug: HYDROmorphone IVP 0.5 mg IVP once Route: IVP; Site: left antecubital; jb4 02:56 Follow up: Response: Pain is decreased at6 02:03 Drug: Ketorolac IVP 15 mg IVP once Route: IVP; Site: left antecubital; at6 02:56 Follow up: Response: Pain is unchanged, physician notified at6 02:15 Drug: HYDROmorphone IVP 1 mg IVP once Route: IVP; Site: left antecubital; at6 02:56 Follow up: Response: Pain is decreased at6 02:15 Drug: NS 0.9% IV 1000 ml IV at 1 bolus Per protocol; to be given as a bolus over 60 at6 minutes Route: IV; Rate: 1 bolus; Site: left antecubital; 02:56 Follow up: Response: No adverse reaction; IV Status: Completed infusion at6 Disposition: 02:27 Co-signature as Attending Physician, Pro Doyle DO I agree with the assessment and tt7 plan of care. Disposition Summary: 05/13/25 02:08 Hospitalization Ordered Notes: Hospitalization Status: Observation sb4 Provider: Quincy Russell sb4 Condition: Fair sb4 Problem: new sb4 Symptoms: are unchanged sb4 Bed/Room Type: Standard sb4 Location: Telemetry/MedSurg (observation)(05/13/25 14:39) bd Room Assignment: [facility](05/13/25 14:39) bd Diagnosis - Calculus of kidney with calculus of ureter - 5.5 mm right UPJ with hydronephrosis, sb4 intractable pain(05/13/25 02:08) Forms: - Medication Reconciliation Form sb4 - SBAR form sb4 - Leadership Thank You Letter sb4 Signatures: Dispatcher [employer] EDMS Taylor Gallegos bd Marshal Maxwell, RN RN jb4 Ganesh Crockett, RN RN Nilda Joaquin PA-Sandra PAClaudia sb4 Laura Rose RN RN al5 Pro Doyle DO DO tt7 Chantal Doyle, RN RN at6 Corrections: (The following items were deleted from the chart) 00:13 00:13 UA Rfx Kirill Cult if indicated+U.LAB.BRZ ordered. EDMS EDMS 00:13 00:13 CBC+H.LAB.BRZ ordered. EDMS EDMS 00:13 00:13 BASIC METABOLIC PANEL+C.LAB.BRZ ordered. EDMS EDMS 02:08 02:08 Calculus of kidney with calculus of ureter - 5.5 mm UPJ with hydronephrosis, sb4 intractable pain sb4 07:07 02:08 Telemetry/MedSurg (observation) sb4 bp 07:07 02:08 sb4 bp 14:39 07:07 [facility] ER HOLD bp bd 14:39 07:07 ERHOLD- bp bd
[2025-05-13] MEDS ORDERED: HYDROMORPHONE HCL 1 MG/ML INJ ONE (02:12)
--- NOTE | 2025-05-13 02:37 | RAD REPORT ---
EXAM: CT ABDOMEN AND PELVIS WITHOUT CONTRAST DATE: 05/13/2025 12:13 AM CDT INDICATION: Flank Pain COMPARISON: Study from the prior day TECHNIQUE: Volumetric CT acquisition of the abdomen and pelvis without the intravenous administration contrast. Axial, coronal and sagittal reconstructions. CT Radiation Dose DLP 1586 mGy-cm AEC, mA/kV adjustment by patient size, and/or iterative reconstruction technique were used, per [facility] dose-optimization program. FINDINGS: Lines and tubes: None. Lower thorax: Unremarkable. Evaluation of the solid organs is limited by lack of intravenous contrast. Liver and biliary tree: Normal. Gallbladder: Normal. No CT evidence of gallstones. Pancreas: Normal. Spleen: Normal. Adrenals: Normal. Kidneys and ureters: Unchanged position of a 4 mm calculus at the right ureteropelvic junction with m ild hydronephrosis. Otherwise unremarkable. Bladder: Decompressed. Reproductive organs: Unremarkable. Gastrointestinal tract: Unremarkable with normal caliber. Small stool burden. Appendix: Unremarkable. Peritoneum and retroperitoneum: No ascites or free air. Lymph nodes: No pathologic adenopathy. Vasculature: Unremarkable. Bones: No acute abnormality. Soft tissues: Unremarkable. IMPRESSION: No significant interval change. Unchanged position of a 4 mm calculus at the right ureteropelvic junction with mild hydronephrosis. Electronically signed by: Delmer Wilkes MD 05/13/2025 02:33 AM CDT 838 Due to temporary technical issues with the PACS/Kwanji reporting system, reports are being darcy d by the in-house radiologist without review as a courtesy to ensure prompt reporting the interpreting radiologist is fully responsible for the content of the report. Transcribed Date/Time: 05/13/2025 2:36 AM
--- NOTE | 2025-05-13 10:56 | P.HP ---
Certification for Inpatient Patient admitted to: Inpatient With expected LOS: >2 Midnights Patient will require the following post-hospital care: None Practitioner: I am a practitioner with admitting privileges, knowledge of patient current condition, hospital course, and medical plan of care. Services: Services provided to patient in accordance with Admission requirements found in Title 42 Section 412.3 of the Code of Federal Regulations Patient History Date of Service: 05/13/25 Primary Care Provider: None Reason for admission: renal calculi History of Present Illness: - History of Presenting Illness: Kamari Pinon presented to the emergency department for evaluation of a possible right-sided kidney stone. He had been seen the previous night and diagnosed with a 5 to 6 cm kidney stone on the right side. Pain had initially improved after administration of pain medications, and he was discharged with a prescription for antibiotics, pain medication, and tamsulosin. He returned due to inability to tolerate oral medications as the pain was causing significant nausea and vomiting. He reported urinating in small amounts with increased frequency. He has a history of previous kidney stones. He denied fever, chills, and weight loss. He reported flank pain, nausea, and vomiting. His abdomen was non-tender, and his back was non-tender. - Past Medical History: Kamari Pinon denied any past medical history. - Current Medications: Kamari Pinon denied taking any daily medications. - Allergies: Kamari Pinon reported no allergies. - Social History: Kamari Pinon denied alcohol consumption and drug use. He reported stopping tobacco two weeks prior to arrival. Allergies No Known Allergies Allergy (Unverified 05/13/25 04:29) Home medications list reviewed: Yes (None) Home Medications: NK [No Home Meds] 05/13/25 - Past Medical/Surgical History Has patient received pneumonia vaccine in the past: No Diabetic: No Past Medical History: Patient denies medical history Past Surgical History: Patient denies surgical history - Family History Family History: Reviewed- Non-Contributory - Social History Smoking Status: Former smoker Smoking therapy provided: Yes Patient receptive to therapy: Yes Alcohol use: No CD- Drugs: No Caffeine use: Yes Place of Residence: Home Review of Systems 10-point ROS is otherwise unremarkable Physical Examination - Physical Exam General: Alert, Oriented x3, Cooperative, Mild distress, Obese HEENT: Atraumatic, Normocephalic, Mucous membr. moist/pink Neck: Supple, JVD not distended, No Thyromegaly Respiratory: Clear to auscultation bilaterally, Normal air movement Cardiovascular: No edema, Normal pulses, Regular rate/rhythm, Normal S1 S2 Capillary refill: Brisk Gastrointestinal: Normal bowel sounds, Soft and benign, Non-distended, W/out hepatosplenomegaly Musculoskeletal: No erythema, No tenderness, No warmth Integumentary: No rashes, No breakdown, No significant lesion, No tenderness/swelling Neurological: Normal gait, Normal speech, Normal strength at 5/5 x4 extr, Normal tone, Sensation intact, Cranial nerves 3-12 intact, Normal affect - Studies Laboratory Data (last 24 hrs) 05/13/25 05/13/25 00:18 00:18 WBC 9.60 Hgb 15.1 Hct 45.1 Plt Count 201 Sodium 140 Potassium 4.0 BUN 14 Creatinine 1.31 H Glucose 103 Male Exam - Male Exam Inguinal exam: No hernias Scrotum: No lesions, No edema, Non-tender Testicular exam: Normal size Penile exam: No lesions, No discharge Assessment and Plan - Plan Assessment: 24-year-old male admitted for renal calculi and UPJ requiring IV pain medication due to severe pain. Plan: Renal calculi at UPJ 5.5 mm Multimodal pain control including acetaminophen 500 mg every 4 hours schedu led, [place] 5 every 4 hours as needed, Dilaudid 1 mg IV push every 4 hours as needed, monitoring for toxicity Normal saline at 125 mL/h Flomax 0.4 mg Monitor vital signs Monitor BMP Monitor CBC Urology consulted, Dr. Harris contacted - Advance Directives Does patient have a Living Will: No Does patient have a Durable POA for Healthcare: No - Code Status/Comfort Care Code Status Assessed: Yes (Full code) Critical Care: No
[2025-05-13] MEDS ORDERED: ACETAMINOPHEN 500 MG TAB PO PRN (11:00)
[2025-05-13] MEDS ORDERED: HYDROCODONE/APAP 5/325 MG TAB ONE (14:36)
[2025-05-13] MEDS: NA CHLORIDE 0.9% 1,000 ML IV SCH (16:20)
[2025-05-13] MEDS: HEPARIN 5000 UNIT/ML 1 ML VIAL SQ SCH (16:20)
[2025-05-13] MEDS: HYDROMORPHONE HCL 1 MG/ML INJ IV PRN (16:20)
[2025-05-13] MEDS: ONDANSETRON 4 MG/2 ML VIAL IV PRN (16:23)
[2025-05-13 16:37] VITALS: BMI 41.5
[2025-05-13] MEDS: FLU (Fluarix) 25-26 (6MOS UP)/PF 45 MCG/0.5 ML Syringe IM ONE (17:15)
--- NOTE | 2025-05-13 20:39 | P.CNS ---
Date of Consult: 05/13/25 Reason for Consult: Obstructive ureterolithiasis Requesting Physician: Nilda Alvarenga Primary Care Provider: None Chief Complaint: renal calculi History of Present Illness: 24-year-old gentleman with no significant past medical or surgical history presents as a first-time stone former with right flank pain. He was seen in the emergency department originally 2 days ago and discharged with medications, but he presented again last night because while trying to take the medications during a fit of pain, he simply vomited them back up. While he denied any fever, he would have some chills associated with the colicky episodes. He was able to drink fluids otherwise. Past medical history: Noncontributory Past surgical history: None Social history: Smoking history but quit Examination: Well-appearing, well-developed, well-nourished, no acute distress Alert, awake, oriented x 3 No dyspnea or sign of respiratory distress No cervical/supraclavicular adenopathy or thyromegaly Abdomen soft, obese, nontender Lying in the hospital bed reasonably comfortable and in fact sleeping when I came into the room No lower extremity calf tenderness 05/13/2025 creatinine 1.31, hemoglobin 15.1, WBC 9.6, platelets 201, UA micro 3+ heme, negative nitrite/leukocyte esterase, greater than 50 RBCs per hpf, no WBCs, 2+ mucus 05/13/2025 CT abdomen pelvis without contrast findings: Unchanged position of 4 mm calculus right UPJ with mild hydronephrosis. Impression: 4 mm right ureterolithiasis with mild hydronephrosis. No other acute findings. Assessment and recommendation: 24-year-old healthy but moderately obese gentleman first-time stone former with right flank pain/renal colic associated with 4 mm right proximal ureterolithiasis with possible ANALILIA. -I counseled him that if he would find it untenable to attempt a trial of passage and manage the pain orally over the course of about the next 2 to 3 weeks, surgical intervention would be warranted. I further explained that given the possible ANALILIA, unable to determine since we do not have a baseline, he may better be served with a stent to decrease any worsening of his underlying renal function. -I explained that in the emergency setting when it is unclear if there might be any mild infection, we would not wish to proceed with pressurized irrigation associated with an attempt at ureteroscopy and laser lithotripsy where the complication of sepsis is possible. Further, I explained that given the high proximal localization of the stone, the ureteral spasm associated with the renal colic would likely prohibit access and increase the risk of ureteral injury. -Therefore, I recommended cystoscopy with right retrograde pyelography and right ureteral stent placement I explained how the procedure was performed in detail and then discussed the risks and side effects as follows. Risk: Urethral stricture, bleeding, infection, ureteral injury. Side effects: Stent discomfort/stent colic Subsequent need for definitive management of the stone was briefly discussed. - He will be scheduled accordingly for cystoscopy with right retrograde pyelography and right ureteral stent placement, and we will plan to proceed tomorrow morning around 7:15 AM. -N.p.o./no solid foods after 11 PM. Clear liquids okay until 3 AM. Allergies No Known Allergies Allergy (Unverified 05/13/25 04:29) Home medications list reviewed: Yes Home Medications: NK [No Home Meds] 05/13/25 - Past Medical/Surgical History Diabetic: No -: Patient states he does not have any past medical history. -: States no past surgical history. - Family History Father Medical History: Other (see notes) Mother Medical History: Other (see notes) Sister Medical History: Other (see notes) - Social History Alcohol use: No CD- Drugs: No Caffeine use: No Place of Residence: Home Physical Examination Temp Pulse Resp BP Pulse Ox 98.1 F 62 16 126/76 99 05/13/25 16:00 05/13/25 16:00 05/13/25 16:00 05/13/25 16:00 05/13/25 16:00 Laboratory Data (last 24 hrs) 05/13/25 05/13/25 00:18 00:18 WBC 9.60 Hgb 15.1 Hct 45.1 Plt Count 201 Sodium 140 Potassium 4.0 BUN 14 Creatinine 1.31 H Glucose 103 - Problems (1) Renal colic on right side Current Visit: Yes Status: Acute (2) Ureterolithiasis Current Visit: Yes Status: Acute (3) Hydronephrosis, right Current Visit: Yes Status: Acute (4) ANALILIA (acute kidney injury) Current Visit: Yes Status: Acute Critical Care: No Time Spent Managing Pts care (In Minutes): 50
[2025-05-13] MEDS: TAMSULOSIN 0.4 MG SR CAP PO SCH (21:04)
[2025-05-13] MEDS: HYDROCODONE/APAP 5/325 MG TAB PO PRN (23:09)
[2025-05-14 05:38] LABS: Absolute Lymphocytes (CBC) 1.7 K/uL (0.7-4.9); Hematocrit 41.7 % (39.6-49.0); Hemoglobin 14.2 g/dL (13.6-17.9); MCH 28.3 pg (27.0-35.0); MCHC 34.1 g/dL (32.0-36.0); MCV 82.9 fL (80-100); MPV 10.8 fL (7.6-11.3); Nucleated RBC Absolute Count 0.0 (0-0); Nucleated Red Blood Cells % 0.1 % (0-0); RBC Red Blood Cell Count 5.03 M/uL (4.33-5.43); White Blood Count 10.00 thou/uL (4.3-10.9)
[2025-05-14 05:48] LABS: ALT/SGPT 34.0 U/L (16-61); Albumin 3.0 g/dL (3.4-5.0); Albumin/Globulin Ratio 0.9 (1.1-1.8); Alkaline Phosphatase 82.0 U/L (45-117); Anion Gap 9.2 mEq/L (5.0-15.0); BUN Blood Urea Nitrogen 15.0 mg/dL (7-18); Globulin 3.5 g/dL (2.3-3.5); Glucose Level 84.0 mg/dL (74-106)
[2025-05-14 05:52] LABS: AST/SGOT 25.0 U/L (15-37); Magnesium 1.9 mg/dL (1.6-2.4); Potassium 4.2 mEq/L (3.5-5.1)
[2025-05-14] MEDS: FAMOTIDINE 20 MG/2 ML VIAL IV ONE (06:40)
[2025-05-14] MEDS: Ringers Lactate 1,000 ML IV ONE (06:45)
[2025-05-14] MEDS ORDERED: LIDOCAINE 1% MPF 5 ML VIAL ONE (07:11)
[2025-05-14] MEDS ORDERED: MIDAZOLAM HCL 2 MG/2 ML INJ ONE (07:12)
[2025-05-14] MEDS ORDERED: FENTANYL CITR 100 MCG/2 ML ONE (07:12)
[2025-05-14] MEDS: CEFAZOLIN SODIUM 2 GM/VIAL ONE (07:30)
[2025-05-14] MEDS: CEFAZOLIN SODIUM 1 GM/VIAL ONE (07:31)
[2025-05-14] MEDS ORDERED: NS 0.9% VIAL 20 ML ONE (07:35)
[2025-05-14] MEDS: PHENAZOPYRIDINE 100MG TAB PO ONE ×2 (07:56→09:08)
--- NOTE | 2025-05-14 07:56 | P.OP ---
Date of Service: 05/14/25 Preoperative diagnoses: Right obstructive ureterolithiasis Right renal colic Suspected ANALILIA Postoperative diagnoses: Right obstructive ureterolithiasis Right renal colic Suspected ANALILIA Principal procedures: Cystoscopy Right retrograde pyelography Right 6 Swiss by 26 cm double-J ureteral stent placement Indications for procedure: 24-year-old healthy but moderately obese gentleman first-time stone former with right flank pain/renal colic associated with 4 mm right proximal ureterolithiasis with possible ANALILIA. Procedure note: Patient was consented in the preoperative holding area before being transferred to the operative suite where general anesthesia was induced. He was given Ancef 3 g IV antimicrobial prophylaxis, and pneumoboots were provided for DVT prophylaxis. He was placed in the lithotomy position, padded and secured to the table appropriately, and his genitalia was prepped with Hibiclens before being draped in standard fashion. The case was begun using a 22 Swiss rigid cystoscope to traverse the urethra and into the bladder with ease. The bladder was decompressed of fluid and urine and surveyed. There were no papillary mucosal lesions, foreign bodies, or stones of any significant size observed. As a result, I cannulated the right ureteral orifice, which was orthotopic in location, using the tip of a 5 Swiss ureteral access catheter. Right retrograde pyelography: Using a 70: 30 mixture of Omnipaque and saline, contrast was injected via the 5 Swiss ureteral access catheter and did propagate up the distal into the mid and proximal ureter before entering the renal pelvis and calyces. There was evidence of mild pelvic caliectasis. No significant ureteral dilation. The stone was not radiopaque. I thus advanced a sensor wire up the 5 Swiss ureteral access catheter and successfully into the collecting system with a coil observed fluoroscopically in the upper pole calyx. Over the wire, I then passed a 6 Swiss by 26 cm double-J ureteral stent over the wire with some resistance passing the stent beyond a point of narrowing in the proximal ureter before ultimately entering the collecting system and coiling there within the upper pole. An additional coil was cystoscopically formed in the bladder. I then decompressed his bladder with fluid and urine. There was a mild degree of papillary necrosis observed emanating from the stent. I remove the cystoscope, took the patient out of the lithotomy position. He was then awakened from general anesthesia before being transferred to a stretcher and then transferred to the recovery room in good condition. Complications: None Discharge disposition: Follow-up should be established as an outpatient to arrange and discuss definitive management of his 5 mm proximal right ureterolithiasis with obstruction. Repeat analysis to confirm resolution of his ANALILIA would be of benefit potentially prior to discharge.
--- NOTE | 2025-05-14 08:11 | RAD REPORT ---
EXAMUrethrocystogrphy Retrograde CLINICAL HISTORY: Ureteral stent placement FINDINGS: 9 fluoroscopic spot images obtained. Fluoroscopy time 0.27 minutes. Please refer to Dr. Steven lind for findings
[2025-05-14 08:30] VITALS: O2SAT 99
--- NOTE | 2025-05-14 13:20 | P.DS ---
Admission Date: 05/13/25 Discharge Date: 05/14/25 Primary Care Provider: None Disposition: ROUTINE DISCHARGE Discharge Condition: GOOD Reason for Admission: renal calculi Consultations: Urology Procedures: Cytoscopy 05/14/2025 Brief History of Present Illness: Kamari Pinon 24 M presented to the emergency department for evaluation of a possible right-sided kidney stone. He had been seen the previous night and diagnosed with a 5 to 6 cm kidney stone on the right side. Pain had initially improved after administration of pain medications, and he was discharged with a prescription for antibiotics, pain medication, and tamsulosin. He returned due to inability to tolerate oral medications as the pain was causing significant nausea and vomiting. He reported urinating in small amounts with increased frequency. He has a history of previous kidney stones. He denied fever, chills, and weight loss. He reported flank pain, nausea, and vomiting. His abdomen was non-tender, and his back was non-tender. Hospital Course: Renal calculi at UPJ 5.5 mm ANALILIA Patient presented to the emergency department for the same less than 24 hours prior. He was discharged home with medications for supportive care and antibiotics. He began with nausea vomiting secondary to pain and was unable to tolerate p.o. medications that were given in the emergency department. Therefore he decided to return to emergency department for further evaluation. On reevaluation stone was in the same place that UPG did not measure to be approximately 5.5 mm. Urology was consulted for consideration of stent placement. Patient was started on normal saline at 125 mL/h, given Flomax 0.4 mg daily and pain was controlled with multimodal approach of Tylenol, [place] 5 and Dilaudid IV as needed. Patient was maintained n.p.o. past midnight and received stent placement on a.m. of 05/14. During hospitalization creatinine was followed and noted to have mild elevations peaking at approximately 1.5 on a.m. of 05/14. Repeat creatinine drawn prior to discharge to ensure downtrend. Patient tolerating p.o. intake postprocedure. Vital signs, CBC and BMP were monitored during admission. Patient discharge instructions include follow-up with Dr. Harris as stent should not remain in place for longer than 6 months. Discussed the risks and benefits of hospital stay for resolution of kidney injury versus returning home without monitoring. The primary risk highlighted was the worsening of acute kidney injury, which could lead to permanent kidney damage or issues with voiding, potentially causing retention or bladder rupture. The benefit of returning home was the ability to recover in a comfortable setting. Kamari Pinon was counseled on dietary options to help reduce the recurrence of renal calculi and verbalized understanding. He was also reminded to follow up with Dr. Harris' office within 6 months for stent removal. Order placed in chart for BMP to evaluate renal function. Recommended that Kamari Pinon make an appointment with Dr. Harris within 1 to 2 weeks for reevaluation of his acute kidney injury, as he does not have a primary care provider. Kamari Pinon verbalized understanding. Vital Signs/Physical Exam: Temp Pulse Resp BP Pulse Ox 98.6 F 81 16 124/82 95 05/14/25 12:00 05/14/25 12:00 05/14/25 12:00 05/14/25 12:00 05/14/25 12:00 General: Alert, In no apparent distress, Oriented x3, Obese HEENT: Atraumatic, Normocephalic Neck: Supple, JVD not distended, No Thyromegaly Respiratory: Clear to auscultation bilaterally, Normal air movement Cardiovascular: Normal pulses, Regular rate/rhythm, Normal S1 S2 Capillary refill: <2 Seconds Gastrointestinal: Normal bowel sounds, Soft and benign, Non-distended, W/out hepatosplenomegaly, No tenderness, No rebound, No guarding Musculoskeletal: No swelling, No contractures, No erythema Integumentary: No breakdown, No significant lesion, No tenderness/swelling Neurological: Normal speech, Normal tone, Sensation intact, Normal affect Laboratory Data at Discharge: WBC 10.00 thou/uL (4.3-10.9) 05/14/25 04:25 Hgb 14.2 g/dL (13.6-17.9) 05/14/25 04:25 Hct 41.7 % (39.6-49.0) 05/14/25 04:25 Plt Count 148 thou/uL (152-406) L 05/14/25 04:25 Sodium 140 mEq/L (136-145) 05/14/25 04:25 Potassium 4.2 mEq/L (3.5-5.1) 05/14/25 04:25 BUN 15 mg/dL (7-18) 05/14/25 04:25 Creatinine 1.54 mg/dL (0.70-1.30) H 05/14/25 12:23 Glucose 84 mg/dL (74-106) 05/14/25 04:25 Phosphorus 3.9 mg/dL (2.5-4.9) 05/14/25 04:25 Magnesium 1.9 mg/dL (1.6-2.4) 05/14/25 04:25 Total Bilirubin 1.0 mg/dL (0.2-1.0) 05/14/25 04:25 AST 25 U/L (15-37) 05/14/25 04:25 ALT 34 U/L (16-61) 05/14/25 04:25 Alkaline Phosphatase 82 U/L (45-117) 05/14/25 04:25 Home Medications: Ciprofloxacin HCl [Cipro 500 MG Tablet] 500 mg PO BID 7 Days #14 tab 05/14/25 Ketorolac [Toradol*] 10 mg FT Q6H PRN 7 Days #10 tab 05/14/25 Ondansetron HCl 4 mg PO TID #12 tab 05/14/25 New Medications: Ciprofloxacin HCl [Cipro 500 MG Tablet] 500 mg PO BID 7 Days #14 tab Ondansetron HCl 4 mg PO TID #12 tab Ketorolac [Toradol*] 10 mg FT Q6H PRN 7 Days #10 tab PRN Reason: Pain Scale 5-7 (Moderate) Physician Discharge Instructions: You have a new right ureteral stent that has been placed. As we discussed preoperatively, please remember that this is a foreign body, which must be removed within 6 months maximum to prevent it from becoming encrusted like barnacles on a ship or a source for chronic infection. Please contact my office at [phone] to arrange follow-up accordingly. You may expect increased sensation of need to urinate, urinary urgency, or potentially even a degree of occasional discomfort when you urinate associated with the stent. If this is particularly bothersome to you, notify me via my office and we can consider a prescription medication to manage that called oxybutynin/Ditropan. Please note, side effects include potential for dry mouth, dry eyes, and constipation. You may expect some blood in the urine. He will be light pink initially before becoming Marija iced tea colored, before becoming perhaps with coffee ground like particles, before it clears. As long as the stent is in place, this pattern may repeat associated with physical activity. It is only a concern if you see bright red and thick, nontranslucent (not see-through), blood in the urine which appears like tomato juice. Notify me immediately should this occur. Notify me should you develop any fever (temperature greater than 100.4 Fahrenheit), intractable nausea or vomiting, increasing pain not controlled by pain medications, or other unusual signs or symptoms. All the best! WBR Diet: Low sodium Activity: Ad chelly Followup: NONE,NONE [Primary Care Provider] - Milton Harris [ACTIVE - CAN ADMIT] - 1-2 Weeks Time spent managing pt's care (in minutes): 37
[2025-05-14 15:51] LABS: Anion Gap 6.4 mEq/L (5.0-15.0); BUN Blood Urea Nitrogen 15.0 mg/dL (7-18); Glucose Level 124.0 mg/dL (74-106); Potassium 4.4 mEq/L (3.5-5.1)
[2025-05-14 17:32] VITALS: BP 134/65; TEMP 98
== END 2025-05-14 18:30 | disposition home or self-care (01) | DRG 660 ==
LOC: ER 00:01 → ERHOLD 10:43 → 2ND 14:56
PROVIDERS: ADMIT Hospitalist; ATTEND Hospitalist
PROC: BT1D1ZZ Fluoroscopy of Right Kidney, Ureter and Bladder using Low Osmolar Contrast (ICD-10-PCS; 2025-05-14)
PROC: 0T768DZ Dilation of Right Ureter with Intraluminal Device, Via Natural or Artificial Opening Endoscopic (ICD-10-PCS; principal; 2025-05-14 07:15)
DX: N13.2 Hydronephrosis with renal and ureteral calculous obstruction (principal); Z68.41 Body mass index [BMI] 40.0-44.9, adult; E66.9 Obesity, unspecified; N17.9 Acute kidney failure, unspecified; Z87.891 Personal history of nicotine dependence; Z79.899 Other long term (current) drug therapy
CPT/HCPCS: 36415; 51610; 74176; 74450; 76377; 80048; 80053; 81001; 82565; 83735; 84100; 85025; 96365; 96366; 96375; 99285; A4216; J0690; J1171; J1644; J1885; J2003; J2250; J2405; J2704; J3010; J3475; J7030; J7120